=== PATIENT | female | born 1990 | race Caucasian/White ===

== ENCOUNTER 2016-11-03 06:10 | Inpatient (IN) | payer MEDICARE ==
[~2016-11-03] VITALS: Ht 162.6 cm; Wt 102.5 kg
[2016-11-03 06:55] LABS: HEMOGLOBIN 10.1 gm/dl (12.3-15.3); RED BLOOD COUNT 3.58 M/UL (4.00-5.10); WHITE BLOOD COUNT 13.1 K/UL (4.5-11.0)
[2016-11-04 03:33] LABS: HEMOGLOBIN 9.9 gm/dl (12.3-15.3)
[2016-11-05] MEDS ORDERED: COLACE 100MG C100 MG PO (12:06)
== END 2016-11-05 15:07 | disposition home or self-care (01) | DRG 766 ==
LOC: OB 06:10
PROVIDERS: Obstetrics & Gynecology; ADMIT Obstetrics & Gynecology
PROC: 10907ZC Drainage of Amniotic Fluid, Therapeutic from Products of Conception, Via Natural or Artificial Opening (ICD-10-PCS; 2016-11-03)
PROC: 10D00Z1 Extraction of Products of Conception, Low, Open Approach (ICD-10-PCS; principal; 2016-11-03 22:52)
DX: O16.4 Unspecified maternal hypertension, complicating childbirth (principal); O61.0 Failed medical induction of labor; Z3A.39 39 weeks gestation of pregnancy; Z37.0 Single live birth; O99.52 Diseases of the respiratory system complicating childbirth; J45.909 Unspecified asthma, uncomplicated; O99.824 Streptococcus B carrier state complicating childbirth
CPT/HCPCS: 36415; 81001; 82800; 85014; 85018; 85025; 90715; C9113; J0690; J2274; J2300; J2370; J2405; J2590; J2765; J2795; J3010; J3430; J7120

== ENCOUNTER 2016-11-08 18:41 | Emergency (ER) | payer MEDICARE ==
[~2016-11-08 18:41] MED LIST: COLACE 100MG C100 MG PO
[2016-11-08 21:54] LABS: HEMOGLOBIN 9.1 gm/dl (12.3-15.3); RED BLOOD COUNT 3.15 M/UL (4.00-5.10); WHITE BLOOD COUNT 12.6 K/UL (4.5-11.0)
[2016-11-08 22:09] LABS: BUN/CREATININE RATIO 30 (0-10)
== END 2016-11-09 00:10 | disposition home or self-care (01) ==
LOC: ER1 18:41
PROVIDERS: Family Medicine
DX: O86.20 Urinary tract infection following delivery, unspecified (principal); Z79.899 Other long term (current) drug therapy
CPT/HCPCS: 36415; 80053; 81001; 83690; 85025; 87086; 96374; 96375; 99284; J2270; J2405; J7040; J7050; Q9962